=== PATIENT | male | born 1985 ===

== ENCOUNTER 2018-02-03 08:05 | Emergency (ER) | payer OTHER ==
[2018-02-03 08:09] VITALS: BMI 34.9
[2018-02-03 08:11] VITALS: BP 121/77; PULSE 59; RESP 16; TEMP 98.1; O2SAT 97
--- NOTE | 2018-02-03 08:19 | ED PDOC ---
Upper Extremity Pain/Injury Time Seen by Provider: 02/03/18 08:16 History Per: Patient Onset/Duration Of Symptoms: Days (3) Current Symptoms Are (Timing): Still Present Severity: Mild Exacerbating Factor(s): Movement Additional Complaint(s): Right forearm pain radiates down into hand. Assoc with difficulty extending wrist due to pain. Sxs x 3 days. No weakness or numbness. No other weakness. Past Medical History Vital Signs: Last Vital Signs Temp 98.1 F 02/03/18 08:09 Pulse 59 L 02/03/18 08:09 Resp 16 02/03/18 08:09 BP 121/77 02/03/18 08:09 Pulse Ox 97 02/03/18 08:09 - Medical History PMH: No Chronic Diseases - Family History Family History: States: Unknown Family Hx - Immunization History Hx Tetanus Toxoid Vaccination: Yes (received tetanus 7 mos ago) Hx Influenza Vaccination: No Hx Pneumococcal Vaccination: No - Home Medications Home Medications: Ambulatory Orders Medication Instructions Recorded Albuterol HFA [Ventolin HFA 90 12/22/17 mcg/actuation (8 g)] Albuterol HFA [Ventolin HFA 90 2 puff IH Q4H PRN #1 puff 12/22/17 mcg/actuation (8 g)] Spacer, Inhalation [Aerochamber] 1 dev IH DAILY #1 dev 12/22/17 Naproxen [Naprosyn] 500 mg PO Q12H #20 tab 02/03/18 - Allergies Allergies/Adverse Reactions: Allergies Allergy/AdvReac Type Severity Reaction Status Date / Time pollen extracts Allergy Verified 12/22/17 01:35 Review of Systems Constitutional: Negative for: Fever Musculoskeletal: Positive for: Arm Pain Neurological: Negative for: Weakness, Numbness Physical Exam - Physical Exam Appears: Positive for: Non-toxic, No Acute Distress Skin: Positive for: Normal Color, Warm, DRY Pulses-Radial (L): 2+ Pulses-Radial (R): 2+ Extremity: Positive for: Tenderness (Right proximal forearm No swelling or deformity. Pain eleicited when extending right wrist against resistance) Neurologic/Psych: Positive for: Alert, Oriented. Negative for: Motor/Sensory Deficits - ECG O2 Sat by Pulse Oximetry: 97 Disposition - Clinical Impression Clinical Impression: Tendonitis - Patient ED Disposition Is Patient to be Admitted: No Counseled Patient/Family Regarding: Studies Performed, Diagnosis, Need For Followup, Rx Given - Disposition Referrals: [facility] [place] [Outside] Disposition: Routine/Home Disposition Time: 08:47 Condition: FAIR Prescriptions: Naproxen [Naprosyn] 500 mg PO Q12H #20 tab Instructions: Tendonitis Print Language: NAMIBIAN
--- NOTE | 2018-02-03 10:28 | RAD ---
PROCEDURE: Radiographs of the Right Forearm HISTORY: pain COMPARISON: None available. TECHNIQUE: Frontal and lateral views obtained. FINDINGS: BONES: No fracture or destructive lesion. JOINT SPACES: Unremarkable. OTHER FINDINGS: None. IMPRESSION: Unremarkable radiographs of the right forearm.
== END 2018-02-03 09:00 | disposition home or self-care (01) ==
LOC: H.ER 08:05
DX: M65.841 Other synovitis and tenosynovitis, right hand (principal)